=== PATIENT | female | born 1975 | race Caucasian/White ===

== ENCOUNTER → 2022-02-18 14:36 | Outpatient (CLI) | payer OTHER, SELFPAY ==
[2022-02-18 15:57] LABS: C-Reactive Protein Quant < 0.5 mg/dL (<1.0)
[2022-02-18 16:02] LABS: Erythrocyte Sedimentation Rate 10 MM/HR (0-20); Rheumatoid Factor < 8.6 IU/mL (<12.0)
[2022-02-19 16:56] LABS: SS A Ro Sjogrens Antibody < 0.2 AI (0.0-0.9); SS B La Sjogrens Antibody < 0.2 AI (0.0-0.9)
[2022-02-22 15:07] LABS: Albumin 4.3 g/dL (2.9-4.4); Alpha-1-Globulin 0.2 g/dL (0.0-0.4); Alpha-2-Globulin 0.5 g/dL (0.4-1.0); Gamma Globulin 1.2 g/dL (0.4-1.8); Globulin Total 2.7 g/dL (2.2-3.9)
[2022-02-23 19:02] LABS: ANA Screen, IFA Positive (.)
[2022-02-23 21:18] LABS: CCP Antibodies IgG/IgA 8 units (0-19)
== END ==
PROVIDERS: PCP Family Medicine; Referring Provider Physical Medicine & Rehabilitation; Visit Provider Physical Medicine & Rehabilitation
DX: R20.2 Paresthesia of skin (principal); R52 Pain, unspecified
CPT/HCPCS: 36415; 84155; 84165; 85651; 86038; 86140; 86200; 86235; 86430